=== PATIENT | male | born 1990 | race Two or more races ===

== ENCOUNTER 2021-09-07 22:04 | Emergency (ER) | payer SELFPAY ==
[~2021-09-07] VITALS: Ht 170.2 cm; Wt 65.0 kg
[2021-09-07] MEDS ORDERED: KETOROLAC TROMETHAMINE 30 MG/ML VIAL IM ONE (23:45)
[2021-09-07] MEDS ORDERED: ACETAMINOPHEN 325 MG TABLET PO ONE (23:45)
[2021-09-07] MEDS ORDERED: LIDOCAINE 5% TRANSDERMAL PATCH TD ONE (23:45)
[2021-09-08 01:44] VITALS: BP 111/77
== END 2021-09-08 01:58 | disposition home or self-care (01) ==
LOC: EMS 22:08
DX: M54.50 Low back pain, unspecified (principal)
CPT/HCPCS: 72100; 96372; 99283; J1885